=== PATIENT | female | born 1950 | race Caucasian/White ===

== ENCOUNTER 2017-01-21 14:55 | Observation (INO) | payer OTHER, BC ==
[~2017-01-21] VITALS: Ht 160 cm; Wt 70.7 kg
[~2017-01-21 14:55] MED LIST: ACIPHEX20 MG PO; ASTELIN, ASTEPR30 ML NS; CLARITIN10 MG PO; ECOTRIN81 M1 PO; FLUOXETINE HCL10 M1 PO; LIPITOR40 MG PO; NASACORT AQ16.5 GM NS; PROAIR HFA8.5 GM IH; TOPAMAX100 MG PO
[2017-01-21 16:43] LABS: HEMATOCRIT 40.3 % (36.0-46.0); MCH 25.9 PG (29.0-34.0); MCHC 32.3 G/DL (30.0-36.0); MCV 80.3 FL (83-99); MEAN PLAT.VOLUME 9.5 uM^3 (9.5-12.4); PLATELET COUNT 195 K/uL (156-360); RBC DIS.WIDTH-CV 13.3 % (11.8-14.6); RBC DIS.WIDTH-SD 38.4 % (39-53); RED BLOOD COUNT 5.02 M/uL (3.80-5.20); WHITE BLOOD COUNT 6.9 K/uL (4.1-10.2)
[2017-01-21 16:54] LABS: CHLORIDE 104 mEq/L (99-109); POTASSIUM 3.7 mEq/L (3.7-5.4); SODIUM 139 mEq/L (136-147)
[2017-01-21 16:55] LABS: GLUCOSE 141 mg/dL (70-99)
[2017-01-21 16:57] LABS: ANION GAP 9 MEQ/L (2-14)
[2017-01-21 16:59] LABS: GFR ESTIMATE (CALCULATED) > 59 mL/min/
[2017-01-21 17:00] LABS: UREA NITROGEN (BUN) 13 mg/dL (9-23)
[2017-01-21 17:06] LABS: TROP-I INTERPRETATION NEGATIVE; TROPONIN-I < 0.01 ng/mL (0.0-0.30)
[2017-01-21 17:43] LABS: MAGNESIUM 2.2 mg/dL (1.3-2.7)
[2017-01-21 17:50] LABS: SALICYLATE < 5.0 MG/DL (15-30)
[2017-01-21] MEDS ORDERED: ATORVASTATIN CA80 MG PO (18:53)
[2017-01-21] MEDS ORDERED: DEXILANT60 MG PO (18:54)
[2017-01-21] MEDS ORDERED: ASTEPRO 0.15%30 ML BOTH NARES (18:56)
[2017-01-21] MEDS ORDERED: NASACORT10.8 ML BOTH NARES (18:57)
[2017-01-21] MEDS ORDERED: LOSARTAN POTASS50 MG PO (18:57)
[2017-01-21] MEDS ORDERED: HYDROCORTISONE30 G2 TP (18:58)
[2017-01-21] MEDS ORDERED: CALCIUM 500 MG1 EACH PO (18:59)
[2017-01-21] MEDS ORDERED: CORTISONE INJECTION (19:00)
[2017-01-21] MEDS ORDERED: NUTRAVIEW (19:00)
[2017-01-21] MEDS ORDERED: DAILY VALUE1 EACH PO (19:01)
[2017-01-21 19:34] LABS: D-DIMER ELISA 0.49 mg/L FEU (< 0.57)
[2017-01-21 19:48] VITALS: BP 175/84
[2017-01-21 23:07] VITALS: BP 137/78
[2017-01-21 23:46] LABS: TROP-I INTERPRETATION NEGATIVE; TROPONIN-I < 0.01 ng/mL (0.0-0.30)
[2017-01-22 04:40] VITALS: BP 135/81
[2017-01-22 06:13] LABS: HEMATOCRIT 40.1 % (36.0-46.0); MCHC 32.2 G/DL (30.0-36.0); MCV 80.7 FL (83-99); MEAN PLAT.VOLUME 9.4 uM^3 (9.5-12.4); PLATELET COUNT 175 K/uL (156-360); RBC DIS.WIDTH-CV 13.2 % (11.8-14.6); RBC DIS.WIDTH-SD 38.5 % (39-53); RED BLOOD COUNT 4.97 M/uL (3.80-5.20); WHITE BLOOD COUNT 5.4 K/uL (4.1-10.2)
[2017-01-22 06:37] LABS: ALKALINE PHOSPHATASE 91 IU/L (3-129); ANION GAP 8 MEQ/L (2-14); CHLORIDE 104 MEQ/L (99-109); GFR ESTIMATE (CALCULATED) > 59 mL/min/; GLUCOSE 122 mg/dL (70-99); POTASSIUM 4.1 MEQ/L (3.7-5.4); SAMPLE HEMOLYSIS CHECK 0; SAMPLE ICTERIC CHECK 0; SAMPLE LIPEMIA CHECK 0; SODIUM 140 MEQ/L (136-147); TOTAL BILIRUBIN 0.5 MG/DL (0.0-1.0); UREA NITROGEN (BUN) 13 mg/dL (9-23)
[2017-01-22 06:44] LABS: TROP-I INTERPRETATION NEGATIVE; TROPONIN-I < 0.01 ng/mL (0.0-0.30)
[2017-01-22 08:00] VITALS: BP 153/82
[2017-01-22 08:30] LABS: POINT-OF-CARE METER ID UU14162513
[2017-01-22 12:13] VITALS: BP 139/79
[2017-01-22] MEDS ORDERED: METOPROLOL SUCC25 MG PO (12:16)
[2017-01-22 12:35] LABS: POINT-OF-CARE METER ID UU14162513
== END 2017-01-22 13:20 | disposition home or self-care (01) ==
LOC: EME 14:55 → EDOF 18:44 → 5WEST 19:27
PROVIDERS: Internal Medicine
DX: I49.3 Ventricular premature depolarization (principal); R07.9 Chest pain, unspecified; E11.9 Type 2 diabetes mellitus without complications; I10 Essential (primary) hypertension; E78.5 Hyperlipidemia, unspecified; G43.909 Migraine, unspecified, not intractable, without status migrainosus; F32.9 Major depressive disorder, single episode, unspecified; J45.909 Unspecified asthma, uncomplicated; M19.90 Unspecified osteoarthritis, unspecified site; Z82.49 Family history of ischemic heart disease and other diseases of the circulatory system; H91.90 Unspecified hearing loss, unspecified ear; G89.29 Other chronic pain; M54.9 Dorsalgia, unspecified; K21.9 Gastro-esophageal reflux disease without esophagitis; G47.33 Obstructive sleep apnea (adult) (pediatric); Z91.19 Patient's noncompliance with other medical treatment and regimen; E78.00 Pure hypercholesterolemia, unspecified
CPT/HCPCS: 71020; 80048; 80053; 82948; 83735; 84443; 84484; 85027; 85379; 93005; 99202; 99281; 99285; G0378; G0480